=== PATIENT | male | born 1960 | race Caucasian/White ===

== ENCOUNTER 2020-06-28 10:00 | Emergency (ER) | payer OTHER ==
[~2020-06-28] VITALS: Ht 165.1 cm; Wt 74.8 kg
--- NOTE | 2020-06-28 10:00 | NUR ---
PT BIBA TO BED 12.
[2020-06-28 10:08] VITALS: BP 156/79
--- NOTE | 2020-06-28 10:30 | NUR ---
60 BIBA FROM WORK FOR COMPLAINS OF A FENCE FALLING ONTO HIM. PT PRESENTS WITH LACERATIONS ON LEFT HAND, AND BILATERAL LEGS. BLEEDING CONTROLLED, CAP REFILL <3 SEC AND RADIAL/PEDAL PULSE PRESENT IN ALL EXTREMITIES. PT AOX4, BREATHING EVEN AND UNLABORED, SKIN WARM AND DRY. BED IN LOWEST POSITION, LOCKED, BED RAIL UPX1. PMH - DENIES ALLERGIES - NKA
--- NOTE | 2020-06-28 10:41 | NUR ---
RAD AT BEDSIDE
[2020-06-28] MEDS ORDERED: NAPR-54 PO (11:46)
--- NOTE | 2020-06-28 11:46 | NUR ---
PT WOUND CLEANED WITH NORMAL SALINE AND APPLIED DERMABOND TO SKIN TEAR. WOUND DRESSED WITH BANDAID X3
--- NOTE | 2020-06-28 12:05 | NUR ---
Patient discharged with v/s stable. Written and verbal after care instructions about contusion, abrasion given and explained in polish. Patient alert, oriented and verbalized understanding of instructions. Ambulatory with steady gait. All questions addressed prior to discharge. ID band removed. Patient advised to follow up with PMD. Rx of naproxen given. Patient educated on indication of medication including possible reaction and side effects. Opportunity to ask questions provided and answered.
[2020-06-28 12:09] VITALS: BP 150/78
== END 2020-06-28 12:05 | disposition home or self-care (01) ==
LOC: MED 10:00
DX: S80.12XA Contusion of left lower leg, initial encounter (principal); S80.11XA Contusion of right lower leg, initial encounter; S60.512A Abrasion of left hand, initial encounter; W18.39XA Other fall on same level, initial encounter; Y93.89 Activity, other specified; Y92.89 Other specified places as the place of occurrence of the external cause; Y99.8 Other external cause status
CPT/HCPCS: 73130; 73590; 90471; 90715; 99284